=== PATIENT | female | born 1970 | race Caucasian/White ===

== ENCOUNTER 2020-12-21 13:12 | Outpatient (CLI) | payer OTHER ==
[2020-12-22 11:37] LABS: SARS-CoV-2 PCR by NAA Not Detected (NotDetected)
== END 2020-12-21 13:13 | disposition home or self-care (01) ==
LOC: CSHLAB 13:12
PROVIDERS: ATTEND Internal Medicine Gastroenterology
DX: Z20.822 Contact with and (suspected) exposure to COVID-19 (principal); Z12.11 Encounter for screening for malignant neoplasm of colon
CPT/HCPCS: 87635; U0003; U0005

== ENCOUNTER 2020-12-26 06:06 | Day surgery (SDC) | payer OTHER ==
[2020-12-22 15:11] VITALS: BMI 32.8
[2020-12-26] MEDS ORDERED: Lidocaine 1% MPF 2 ML VIAL ONE (06:47)
[2020-12-26] MEDS ORDERED: Lidocaine 1% PF 5 ML VIAL ONE (07:14)
[2020-12-26] MEDS ORDERED: PROPOFOL 40 ML ONE (07:14)
[2020-12-26] MEDS ORDERED: PROPOFOL 20 ML ONE ×2 (07:52→08:01)
== END 2020-12-26 09:15 | disposition home or self-care (01) ==
LOC: CSHSDC 06:06
PROVIDERS: ATTEND Internal Medicine Gastroenterology
DX: Z12.11 Encounter for screening for malignant neoplasm of colon (principal); K63.5 Polyp of colon; K64.9 Unspecified hemorrhoids
CPT/HCPCS: 88305; J2704

== ENCOUNTER 2022-02-14 12:33 | Outpatient (CLI) | payer OTHER | END 2022-02-14 12:34 | disposition home or self-care (01) | LOC: CSHLAB 12:33 | PROVIDERS: ATTEND Nurse Practitioner Family | DX: Z20.822 Contact with and (suspected) exposure to COVID-19 (principal) | CPT/HCPCS: U0003; U0005 ==

== ENCOUNTER 2022-02-18 10:38 | Outpatient (CLI) | payer OTHER | END 2022-02-18 10:39 | disposition home or self-care (01) | LOC: CSHCP 10:38 | PROVIDERS: ATTEND Nurse Practitioner Family | DX: R06.02 Shortness of breath (principal); R94.2 Abnormal results of pulmonary function studies | CPT/HCPCS: 94060; 94726; 94729; 94760 ==

== ENCOUNTER 2023-01-02 14:47 | Emergency (ER) | payer BC ==
[2023-01-02 16:01] LABS: #Basophils 0.1 10x3/uL (0.0-0.2); #Eosinphils 0.9 10x3/uL (0.0-0.5); #Monocytes 0.9 10x3/uL (0.0-1.1); #Neutrophils 5.9 10x3/uL (1.5-8.4); %Basophils 0.6 % (0.0-2.0); %Eosinophils 8.6 % (0.0-6.0); %Lymphocytes 28.2 % (18.0-47.0); %Monocytes 8.1 % (0.0-10.0); %Neutrophils 54.2 % (40.0-75.0); Hemoglobin 13.5 g/dL (12.0-15.5); Mean Corpuscular HGB CONC 33.2 g/dL (32.0-36.0); Mean Corpuscular Hemoglobin 29.3 pg (27.0-33.0); Mean Corpuscular Volume 88.3 fl (81.6-98.3); Mean Platelet Volume 11.6 fl (7.4-10.4); Platelet Count 303 10x3/uL (150-450); RBC Distribution Width 12.8 % (11.5-14.5); Red Blood Cell (RBC) Count 4.61 10x6/uL (3.90-5.03); White Blood Cell (WBC) Count 10.8 10x3/uL (3.5-10.5)
[2023-01-02 16:15] LABS: ALT (SGPT) 15 U/L (8-55); AST (SGOT) 18 U/L (5-34); Albumin 3.9 g/dL (3.5-5.0); Alkaline Phosphatase 89 U/L (40-110); Anion Gap 15 mmol/L (10-20); BUN (Urea Nitrogen) 18 mg/dL (9.8-20.1); Bilirubin, Total 0.4 mg/dL (0.2-1.2); Calc. Creatinine Clearance 0 mL/min (70-130); Calcium 9.7 mg/dL (7.8-10.44); Carbon Dioxide 23 mmol/L (22-29); Chloride 107 mmol/L (98-107); Estimated GFR 81; Globulin 3.1 g/dL (2.4-3.5); Glucose 159 mg/dL (70-105); Lipase 56 U/L (8-78); Magnesium 1.9 mg/dL (1.6-2.6); Potassium 4.4 mmol/L (3.5-5.1); Sodium 141 mmol/L (136-145)
[2023-01-02] MEDS ORDERED: Aspirin Chewable 81 MG TAB ONE (16:35)
[2023-01-02] MEDS ORDERED: Acetaminophen 325 MG TAB ONE (16:36)
[2023-01-02] MEDS ORDERED: methylPREDNISolone Sod Succ/PF 125 MG/2 ML VIAL ONE (16:36)
[2023-01-02] MEDS ORDERED: Magnesium 2 GM/50 ML BAG (IN WATER) ONE (20:02)
[2023-01-02] MEDS ORDERED: diphenhydrAMINE 50 MG/ML VIAL ONE (20:02)
[2023-01-02] MEDS ORDERED: Lorazepam 2 MG/ML VIAL ONE (20:30)
[2023-01-02] MEDS ORDERED: Caffeine/Sodium Benzoate 0.5 GM in Sodium Chloride 0.9% 1,000 ML IVPB SCH (21:00)
[2023-01-02 21:01] LABS: Troponin I Less than 0.010 ng/mL (< 0.028)
== END 2023-01-02 22:09 | disposition home or self-care (01) ==
LOC: CSHERS 14:47
DX: I10 Essential (primary) hypertension (principal); R51.9 Headache, unspecified; E11.22 Type 2 diabetes mellitus with diabetic chronic kidney disease; I12.9 Hypertensive chronic kidney disease with stage 1 through stage 4 chronic kidney disease, or unspecified chronic kidney disease; N18.30 Chronic kidney disease, stage 3 unspecified; E03.9 Hypothyroidism, unspecified; E78.00 Pure hypercholesterolemia, unspecified; Z79.4 Long term (current) use of insulin; Z79.899 Other long term (current) drug therapy
CPT/HCPCS: 36415; 71045; 80053; 83690; 83735; 83880; 84484; 85025; 93005; 96365; 96375; J0706; J1200; J2060; J2930; J3475; J7050